=== PATIENT | female | born 1965 | race Caucasian/White ===

== ENCOUNTER 2019-03-22 05:42 | Day surgery (SDC) | payer BC ==
[2019-03-22] VITALS (13 sets, daily range): BP systolic 93–124; BP diastolic 59–76; PULSE 52–60; RESP 11–23; Ht 158.8 cm; Wt 60.3 kg
[~2019-03-22] VITALS: Ht 158.8 cm; Wt 60.3 kg
[~2019-03-22 05:42] MED LIST: NOL20 PO
[2019-03-22] MEDS ORDERED: LACTATED RINGER'S 1,000 ML (ENTER RATE) IV SCH (07:00)
--- NOTE | 2019-03-22 07:09 | HPN ---
Date/Time of Note Date/Time of Note DATE: 03/22/19 TIME: 07:09 Interval H&P Admission Note Pt. seen H&P reviewed: No system changes GI NESS MD Mar 22, 2019 07:09
[2019-03-22] MEDS ORDERED: NOL20 PO (07:12)
--- NOTE | 2019-03-22 07:23 | PREAC ---
Date/Time of Note Date/Time of Note DATE: 03/22/19 TIME: 07:22 Anesthesia Eval and Record Evaluation Time Pre-Procedure Interview DATE: 03/22/19 TIME: 07:22 Age 53 Sex female NPO: 8 hrs Preoperative diagnosis bleeding Planned procedure hysteroscopy Past Medical History Past Medical History: Includes Heme: Anemia Surgery & Anesthesia Issues No known issue Meds Anticoagulation: No Beta Carol Ann within 24 hr: No Reason Beta Carol Ann not given: Pt. not on B-Carol Ann Reported Medications Tamoxifen Citrate* (Tamoxifen Citrate*) 20 Mg Tab, 20 MG PO DAILY, TAB 03/22/19 Discontinued Reported Medications Tamoxifen Citrate* (Tamoxifen Citrate*) 20 Mg Tab, 20 MG PO DAILY, TAB 05/29/15 Current Medications Lactated Ringer's 1,000 ml @ 125 mls/hr Q8H IV Last administered on 03/22/19at 06:58; Admin Dose 125 MLS/HR; Start 03/22/19 at 07:00 Meds reviewed: Yes Allergies Coded Allergies: aspirin (Verified Allergy, Severe, SOB, 03/22/19) Allergies Reviewed: Yes Labs/Studies Labs Reviewed: Reviewed by anesthesiologist test: Negative Pre-procedure Exam Last vitals Vital Signs Date Temp Pulse Resp B/P (MAP) Pulse Ox O2 O2 Flow FiO2 Time Delivery Rate 03/22/19 98.3 60 18 93/69 (77) 97 Room Air 06:57 Airway: Adequate mouth opening, Adequate thyromental dist Mallampati: Mallampati II Teeth: Normal Lung: Normal Heart: Normal ASA Physical Status ASA physical status: 2 Emergency: None Planned Anesthetic General/MAC: ETT Pre-operative Attestations Prior to commencing anesthesia and surgery, the patient was re-evaluated, there was verification of: *The patient's identity *The results of appropriate recent lab work and preoperative vital signs *The above evaluation not changing prior to induction *Anesthetic plan, risk benefits, alternative and complications discussed with patient/family; questions answered; patient/family understands, accepts and wishes to proceed. REN OVERTON Mar 22, 2019 07:22
[2019-03-22] MEDS ORDERED: FENTAnyl 50 MCG/ML VIAL IV PRN ×2 (07:30)
[2019-03-22] MEDS ORDERED: MEPERIDINE 25 MG INJ IV PRN (07:30)
[2019-03-22] MEDS ORDERED: HYDROmorphONE 1 MG/5 ML IV SYRINGE IV PRN ×3 (07:30)
[2019-03-22] MEDS ORDERED: DESFLURANE 15 MIN ONE (07:30)
[2019-03-22] MEDS ORDERED: METOCLOPRAMIDE 10 MG INJ IV PRN (07:30)
[2019-03-22] MEDS ORDERED: ONDANSETRON 4 MG INJ IV PRN (07:30)
[2019-03-22] MEDS ORDERED: DIPHENHYDRAMINE 50 MG INJ IV PRN (07:30)
[2019-03-22] MEDS ORDERED: ALBUTEROL 0.083% (NEB) 2.5 MG/3 ML AMP HHN PRN (07:30)
[2019-03-22] MEDS ORDERED: CEFAZOLIN 1 GM INJ ONE (07:30)
[2019-03-22] MEDS ORDERED: FENTAnyl 50 MCG/ML VIAL ONE (07:36)
[2019-03-22] MEDS ORDERED: LIDOCAINE 100 MG SYRINGE ONE (07:48)
[2019-03-22] MEDS ORDERED: PROPOFOL 20 ML ONE (07:48)
[2019-03-22] MEDS ORDERED: ONDANSETRON 4 MG INJ ONE (07:48)
[2019-03-22] MEDS ORDERED: ROCURONIUM 50 MG INJ ONE (07:48)
[2019-03-22] MEDS ORDERED: SUCCINYLCHOLINE CHLORIDE 100 MG/5 ML SYG IV ONE (07:48)
[2019-03-22] MEDS ORDERED: DEXAMETHASONE 4 MG/ML 5 ML INJ ONE (07:48)
[2019-03-22] MEDS ORDERED: METOCLOPRAMIDE 10 MG INJ ONE (07:48)
[2019-03-22] MEDS ORDERED: SUGAMMADEX SODIUM 200 MG/2 ML VIAL IV ONE (07:53)
--- NOTE | 2019-03-22 09:41 | PD.PPDC ---
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
--- NOTE | 2019-03-22 09:51 | SIPON ---
Date/Time of Note Date/Time of Note DATE: 03/22/19 TIME: 09:44 Operative Report Preoperative Diagnosis prominent endometrium Postoperative Diagnosis see pathologic report Operation/Procedure Performed hysteroscopic enometrial shaving Surgeon see signature line dental assistant MARCOS Cook Anesthesia: general Estimated blood loss: none Transfusion Required none Specimen endometrial curettings Grafts/Implants none Complications none GI NESS MD Mar 22, 2019 09:51
--- NOTE | 2019-03-22 10:13 | PAC ---
Date/Time of Note Date/Time of Note DATE: 03/22/19 TIME: 10:12 Post-Anesthesia Notes Post-Anesthesia Note Last documented vital signs Vital Signs Date Temp Pulse Resp B/P (MAP) Pulse Ox O2 O2 Flow FiO2 Time Delivery Rate 03/22/19 54 19 110/76 100 Room Air 09:37 (87) 03/22/19 98.0 08:45 Activity: WNL Respiratory function: WNL Cardiovascular function: WNL Mental status: Baseline Pain reasonably controlled: Yes Hydration appropriate: Yes Nausea/Vomiting absent: Yes REN OVERTON Mar 22, 2019 10:13
--- NOTE | 2019-03-24 20:05 | OPR ---
DATE OF OPERATION: 03/22/2019 PREOPERATIVE DIAGNOSIS: Prominent endometrium. POSTOPERATIVE DIAGNOSIS: See pathological report. OPERATION PERFORMED: Hysteroscopic endometrial shaving. SURGEON: Melanie Valdez MD ASSEMBLY DETAILER: Joey from [employer]. ANESTHESIA: General. ANESTHESIOLOGIST: Alejo Bautista MD ESTIMATED BLOOD LOSS: None. PROCEDURE: Under the proper induction of general anesthesia, the patient was placed in dorsal lithot lizzy position. Perineal area and vagina wall was prepped and draped in usual aseptic manner. On insp ection, external genitalia revealed no gross abnormality. Bimanual examination, uterus felt to be no rmal size. There was no palpable adnexal pathology. There was no irregularity noted on the uterine surface. Weighted speculum was introduced, cervix identified which shows clear and anterior lip of t he cervix was grasped with a single tooth tenaculum. Cavity was sounded, which is 8 cm in depth and os dilated up to 7 and the hysteroscope which was prepared in the usual fashion connected with normal saline, and the hysteroscope was introduced into the endocervical canal without any difficulty and a dvanced the picture was taken and was able to visualize both ostium and the fundus identified. There was no lesion on the uterine cavity and endometrium is thin. The entire endometrium was shaved with the soft tissue shaver and the procedure was done, which was satisfied. All the tissue was retrieve d in the container which was sent to pathology and the post-shaving picture was taken and the fluid d eficit was 380. All the instruments were removed from the operative field. The patient withstood th e procedure well and was sent to the recovery room in stable condition. Dictated By: MELANIE DA SILVA/OSMIN Conf#: [id number] DID#: [id number]
== END 2019-03-22 10:30 | disposition home or self-care (01) ==
LOC: SDS 05:42
PROVIDERS: ATTEND Obstetrics & Gynecology
DX: N84.0 Polyp of corpus uteri (principal)
CPT/HCPCS: 58558; 88305; J0690; J1100; J2001; J2405; J2765; J3010